=== PATIENT | female | born 1950 | race Caucasian/White ===

== ENCOUNTER → 2019-11-05 | Outpatient (CLI) | payer MEDICARE ==
[~2019-11-05] MED LIST: OXYC-302 PO
== END | disposition home or self-care (01) ==
LOC: PETCFH 13:02
PROVIDERS: ATTEND Specialist
DX: C54.1 Malignant neoplasm of endometrium (principal); N88.8 Other specified noninflammatory disorders of cervix uteri; N28.1 Cyst of kidney, acquired
CPT/HCPCS: 78815; A9552

== ENCOUNTER 2019-11-11 11:34 | Emergency (ER) | payer MEDICARE ==
[~2019-11-11] VITALS: Ht 172.7 cm; Wt 128.0 kg
--- NOTE | 2019-11-11 11:57 | NUR ---
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 DECLINED W/C "IT HURTS TOO MUCH"
--- NOTE | 2019-11-11 12:03 | NUR ---
PT HERE FOR BLEEDING FROM [place]- STATES THERE ARE CLOTS COMING OUT AND THAT SHE FILLED UP 4 PADS IN TWO HOURS. HAS AN ONCOLOGIST WHO SHE CALLED THIS MORNING AND TOLD HER TO COME TO ER. 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 HAS A LARGE SURGERY SCHEDULED FOR THIS NOVEMBER TO REMOVE TUMOR THAT IS CURRENTY IN ENDOMETREIUM. PER PT, THIS TUMOR HAS COMPROMISED HER URETHRA SO SHE HAS A FONTENOT CATHETER IN PLACE. PT STATES SHE HAD A PET SCAN ON FRIDAY. PT RESTING ON [facility]. [facility]. [facility]. PROVIDED WITH BLANKET. NO VAGINAL BLEEDING NOTED AT THIS TIME.
--- NOTE | 2019-11-11 12:07 | NUR ---
MD AT BEDSIDE ASSESSING PT NOW.
[2019-11-11] MEDS ORDERED: HYDROmorphone 1 MG/ML, 1ML INJ ONE (12:29)
[2019-11-11] MEDS ORDERED: SODIUM CHLORIDE FLUSH 10ML SYR IVF ONE (12:30)
[2019-11-11] MEDS ORDERED: HYDROmorphone 2 MG/ML, 1ML IVPush PRN (12:30)
--- NOTE | 2019-11-11 12:41 | NUR ---
TASK RN: MEDICATED PER EMAR FOR PELVIC PAIN RATED AT 6/10 PLACED ON 2L NC(NARCOTICS) UA COLLECTED FROM CATHETER SPECIMEN PORT
[2019-11-11 12:43] LABS: BASOPHILS # (AUTO) 0.02 x10^3/uL (0-0.1); BASOPHILS % (AUTO) 1 % (0-1); EOSINOPHILS % (AUTO) 2 % (1-7); LYMPHOCYTES # (AUTO) 0.94 x10^3/uL (1-3.4); LYMPHOCYTES % (AUTO) 18 % (22-44); MD NO; MEAN CORPUSCULAR HEMOGLOBIN 30.7 pg (27.0-34.8); MEAN CORPUSCULAR HGB CONC 32.3 g/dL (32.4-35.8); MEAN PLATELET VOLUME 8.4 fL (7.4-10.4); MONOCYTES # (AUTO) 0.41 x10^3/uL (0.2-0.8); MONOCYTES % (AUTO) 8 % (2-9); NEUTROPHILS # (AUTO) 3.76 x10^3/uL (1.8-6.8); NEUTROPHILS % (AUTO) 72 % (42-75); PLATELET COUNT 220 x10^3/uL (130-400); RED CELL DISTRIBUTION WIDTH 14.2 % (9.6-15.2)
[2019-11-11 12:47] LABS: INTERNATIONAL NORMALIZED RATIO 0.97 (0.93-1.1); PROTHROMBIN TIME 10.2 Seconds (9.6-11.5)
[2019-11-11 12:48] LABS: ALANINE AMINOTRANSFERASE 27 U/L (12-78); ALBUMIN 3.2 g/dL (3.4-5.0); ANION GAP 4 mmol/L (5-15); CALCIUM 9.2 mg/dL (8.5-10.1); CHLORIDE 109 mmol/L (98-107)
[2019-11-11 12:50] LABS: ALKALINE PHOSPHATASE 70 U/L (45-117); BILIRUBIN,TOTAL 0.5 mg/dL (0.2-1.0); TOTAL PROTEIN 7.3 g/dL (6.4-8.2)
--- NOTE | 2019-11-11 12:59 | NUR ---
TASK RN: TO CT SCAN AT [id number]
[2019-11-11 13:13] LABS: CULTURE INDICATED? YES; MICROSCOPIC INDICATED
[2019-11-11] MEDS ORDERED: OMNIPAQUE 350 MG/ML, 100ML BOTTLE ONE (13:14)
--- NOTE | 2019-11-11 13:32 | NUR ---
PT BACK FROM CT. RESTING ON GURNEY. NADN. VSS. NOW ON 2L NC AFTER ADMINISTRATION OF MEDICIATON.
--- NOTE | 2019-11-11 14:24 | NUR ---
PT RESTING ON [place]. BAUDILIO. VSS. AWARE OF POC, RE: DAYAN CALLING MD BACK.
[2019-11-11 14:29] VITALS: BP 126/52
--- NOTE | 2019-11-11 15:09 | NUR ---
PT PROVIDED WITH WARM BLANKET. DENIES FURTHER NEEDS.
--- NOTE | 2019-11-11 15:45 | NUR ---
PT PROVIDED WITH NEW LEG BAG AND ONE EXTRA. GETTING DRESSED NOW.
== END 2019-11-11 16:00 | disposition home or self-care (01) ==
LOC: ED 13:52
DX: N30.00 Acute cystitis without hematuria (principal); N93.8 Other specified abnormal uterine and vaginal bleeding; Z90.710 Acquired absence of both cervix and uterus; Z90.49 Acquired absence of other specified parts of digestive tract
CPT/HCPCS: 36415; 74177; 80053; 81001; 85025; 85610; 87077; 87086; 87186; 96374; 99284; J1170; Q9967

== ENCOUNTER 2020-01-26 17:38 | Outpatient (CLI) | payer MEDICARE | END 2020-01-26 23:59 | disposition home or self-care (01) | LOC: RAD 17:38 | PROVIDERS: ATTEND Physician Assistant | DX: I82.432 Acute embolism and thrombosis of left popliteal vein (principal); I82.811 Embolism and thrombosis of superficial veins of right lower extremity; I82.491 Acute embolism and thrombosis of other specified deep vein of right lower extremity; M71.22 Synovial cyst of popliteal space [Baker], left knee; M71.21 Synovial cyst of popliteal space [Baker], right knee | CPT/HCPCS: 93970 ==